=== PATIENT | male | born 1970 | race Caucasian/White ===

== ENCOUNTER → 2016-12-08 | Outpatient (REF) ==
--- NOTE | 2016-12-08 08:50 | REP ---
Left shoulder three views : There is no fracture or dislocation. Mineralization and joint spaces are normal. There are no calcifications or foreign bodies. Impression: Negative left shoulder . Signed by Jez Marie MD 12/08/2016 08:42 A
== END ==
LOC: M RAD 08:03
DX: M25.512 Pain in left shoulder (principal)

== ENCOUNTER → 2019-04-09 | Outpatient (CLI) | payer OTHER ==
--- NOTE | 2019-04-09 18:57 | REP ---
Right ribs six views: There is no rib fracture or other rib abnormality. Impression: Negative right rib series. PA chest two views: There is no pneumothorax, hemothorax or pulmonary contusion. Lung edouard are clear. Cardiac size is normal. The lizzie, mediastinum, skeletal structures are unremarkable. Impression: Negative PA chest. Electronically Signed by Jez Marie MD 04/09/2019 06:49 P
== END ==
LOC: M WUC 10:36
PROVIDERS: ATTEND Physician Assistant
DX: S20.221A Contusion of right back wall of thorax, initial encounter (principal); Y92.9 Unspecified place or not applicable; Y93.9 Activity, unspecified; Y99.9 Unspecified external cause status

== ENCOUNTER → 2021-12-02 | Outpatient (CLI) | payer OTHER | LOC: M RAD 13:43 | PROVIDERS: ATTEND Ophthalmology | DX: H34.231 Retinal artery branch occlusion, right eye (principal) ==